=== PATIENT | female | born 1970 | race Hispanic/Latino ===

== ENCOUNTER → 2024-06-20 | Outpatient (REF) | payer BC ==
[~2024-06-20] MED LIST: COLACE100 MG PO; DICYCLOMINE HCL20 MG PO; FUROSEMIDE40 MG PO; HYDROXYZIN10 MG/5 ML PO; HYDROXYZINE HCL25 MG PO; MOUNJARO10 MG/0.5 SC; TYLENOL WITH C1 EACH PO; [UNRECOGNIZED DRUG - OTHER] PO
== END ==
LOC: DX 09:37
PROVIDERS: ATTEND Surgery
DX: K44.9 Diaphragmatic hernia without obstruction or gangrene (principal)
CPT/HCPCS: 74246